=== PATIENT | male | born 1945 | race American Indian/Alaskan Native ===

== ENCOUNTER 2017-02-08 14:25 | Emergency (ER) | payer MEDICARE, OTHER ==
--- NOTE | 2017-02-08 18:22 | XRay Report ---
FINAL REPORT PROCEDURE: XR ANKLE 2V LT TECHNIQUE: Two view left ankle HISTORY: fall//lt ankle pain COMPARISON: No prior studies are available for comparison. FINDINGS: Mild to moderate swelling. Degenerative changes of the ankle. Patchy appearance of the bones of the feet, nonspecific. Suboptimal views with a lateral and a oblique view. IMPRESSION: No definite fracture on limited views
--- NOTE | 2017-02-08 18:24 | XRay Report ---
FINAL REPORT PROCEDURE: XR KNEE 1-2V LT TECHNIQUE: Two views left knee AP lateral HISTORY: Fall//lt knee pain COMPARISON: No prior studies are available for comparison. FINDINGS: Moderate soft tissue swelling. Osteoporosis. Degenerative changes of the knee joint. Motion artifact and soft tissue artifacts exterior to leg obscure the anatomy. I can't exclude a tibial plateau fracture medially. There is chronic calcifications seen about the medial proximal tibial epicondyle. IMPRESSION: Limited evaluation left knee. Can't exclude acute fracture of the medial tibial plateau. Recommend followup three-view with better technique no external artifacts or CT scan evaluation.
--- NOTE | 2017-02-08 18:26 | XRay Report ---
FINAL REPORT PROCEDURE: XR HIP 2-3V LT TECHNIQUE: Two view hip HISTORY: fall//lt hip pain COMPARISON: No prior studies are available for comparison. FINDINGS: Moderate to severe degenerative changes of the hips. Calcifications seen about greater lesser trochanter on the left. Examination is obscured and limited by overlying soft tissue attenuation. Cannot exclude a subtle acute fracture of the left femoral neck. Recommend follow-up with improved technique including AP view pelvis and standard AP coned-down left hip, frogleg left hip oblique left hip and lateral views left hip possible common versus CT scan. IMPRESSION: Cannot exclude subtle acute fracture of the left femoral neck on limited views
[2017-02-08 18:29] LABS: Basophils % (Auto) 0.5 % (0.0-1.8); Hematocrit 45.5 % (35.5-45.6); Hemoglobin 15.1 gm/dl (11.8-15.2); Mean Corpuscular HGB Conc 33 % (32-34); Mean Corpuscular Hemoglobin 30 pg (28-32); Mean Corpuscular Volume 90 fl (84-94); Platelet Count 180 K/mm3 (140-440); Red Blood Count 5.04 M/mm3 (3.65-5.03); Red Cell Distribution Width 14.7 % (13.2-15.2)
[2017-02-08 18:38] LABS: INR 1.78 (0.87-1.13)
[2017-02-08 18:39] LABS: Partial Thromboplastin Time 37.2 Sec. (24.2-36.6)
[2017-02-08 18:57] LABS: Alanine Aminotransferase 50 units/L (7-56); Albumin 4.3 g/dL (3.9-5); Albumin/Globulin Ratio 1.5 %; Alkaline Phosphatase 65 units/L (35-129); Anion Gap 21 mmol/L; BUN/Creatinine Ratio 16; Blood Urea Nitrogen 13 mg/dL (9-20); Calcium 9.1 mg/dL (8.4-10.2); Carbon Dioxide 24 mmol/L (22-30); Chloride 99.5 mmol/L (98-107); Glucose 191 mg/dL (75-100); Potassium 4.7 mmol/L (3.6-5.0); Sodium 140 mmol/L (137-145); Total Protein 7.1 g/dL (6.3-8.2)
[2017-02-08 21:41] VITALS: BP 154/73
--- NOTE | 2017-02-08 23:28 | Emergency Department Report ---
ED Fall HPI - General Chief Complaint: Fall Stated Complaint: LEG PAIN Time Seen by Provider: 02/08/17 23:18 Source: patient, family () Mode of arrival: Ambulatory - History of Present Illness Initial Comments: 71 yo MALE WITH LEFT SIDED CVA AND PARALYSIS C/O FALL YESTERDAY WHILE TRANSFERRING FROM THE BED TO THE WHEEL CHAIR. HE C/O LEFT HIP, KNEE AND ANKLE PAIN. NO LOC MD Complaint: fall -: Sudden, days(s) (1) Fall From: out of bed ( TO WHEELCHAIR) When Fall Occurred: # days [employer]ATION [employer] (1) Fall Witnessed: no Place Fall Occurred: home Loss of Consciousness: none Prolonged Down Time?: no Symptoms Prior to Fall: none Location - Extremities: Left: Knee, Ankle Severity: moderate Severity scale (0 -10): 6 Quality: aching Context: other (TRANSFERRING FROM HIS BED) - Related Data Home Medications Medication Instructions Recorded Confirmed Last Taken Digoxin [Lanoxin] 0.25 mg PO DAILY 11/07/12 11/07/12 11/06/12 0.25 Gabapentin [Neurontin] 1,200 mg PO TID 11/07/12 11/07/12 11/06/12 400 Insulin Aspart Prot/Aspart(Nf) 5 unit SQ TID 11/07/12 11/07/12 11/06/12 [NovoLOG Mix 70/30 VIAL] 5 Insulin Glargine,Hum.rec.anlog 30 unit SQ QHS 11/07/12 11/07/12 11/05/12 [Lantus Solostar] 30 Lisinopril [Zestril TAB] 5 mg PO QDAY 11/07/12 11/07/12 11/06/12 5 Metoprolol [Lopressor TAB] 50 mg PO BID 11/07/12 11/07/12 11/06/12 50mg Multivitamin [Multi-Vitamin Daily] 1 each PO 11/07/12 11/07/12 11/06/12 one tab Simvastatin 10 mg PO QHS 11/07/12 11/07/12 11/05/12 10 Trazodone HCl [traZODone] 200 mg PO QPM 11/07/12 11/07/12 11/05/12 300 Venlafaxine HCl [Venlafaxine ER] 150 mg PO QDAY 11/07/12 11/07/12 11/06/12 150 Warfarin Sodium [Coumadin] 5 mg PO 5XW 11/07/12 11/07/12 11/12/12 5mg Warfarin [Coumadin] 2.5 mg PO 2XW 11/07/12 11/07/12 11/05/12 2.5 Previous Rx's Medication Instructions Recorded Last Taken Type Famotidine [Pepcid] 40 mg PO QHS #30 tablet 11/11/12 Unknown Rx Levofloxacin [Levaquin] 750 mg PO QDAY #10 tablet 11/11/12 Unknown Rx oxyCODONE /ACETAMINOPHEN [Percocet 1 tab PO Q6HR PRN #20 tablet 02/09/17 Unknown Rx 5/325] Allergies Allergy/AdvReac Type Severity Reaction Status Date / Time Iodinated Contrast- Oral and Allergy Hives Verified 02/08/17 14:32 IV Dye ED Review of Systems ROS: Stated complaint: LEG PAIN Other details as noted in HPI Constitutional: denies: chills, fever Eyes: denies: eye pain, eye discharge, vision change ENT: denies: ear pain, throat pain Respiratory: denies: cough, shortness of breath, wheezing Cardiovascular: denies: chest pain, palpitations Endocrine: no symptoms reported Gastrointestinal: denies: abdominal pain, nausea, diarrhea Genitourinary: denies: urgency, dysuria Musculoskeletal: denies: back pain, joint swelling Skin: denies: rash, lesions Neurological: other (PARALYZED ON THE LEFT SIDE). denies: headache, weakness, paresthesias Psychiatric: denies: anxiety, depression Hematological/Lymphatic: denies: easy bleeding, easy bruising ED Past Medical Hx - Past Medical History Previous Medical History?: Yes Hx Hypertension: Yes Hx CVA: Yes Hx Heart Attack/AMI: No Hx Congestive Heart Failure: Yes Hx Diabetes: Yes Hx Deep Vein Thrombosis: Yes Hx Arthritis: Yes Hx Seizures: Yes Additional medical history: PTSD - Surgical History Past Surgical History?: Yes Additional Surgical History: post stroke surgery 2003 - Social History Smoking Status: Never Smoker - Medications Home Medications: Home Medications Medication Instructions Recorded Confirmed Last Taken Type Digoxin [Lanoxin] 0.25 mg PO DAILY 11/07/12 11/07/12 11/06/12 History 0.25 Gabapentin [Neurontin] 1,200 mg PO TID 11/07/12 11/07/12 11/06/12 History 400 Insulin Aspart Prot/Aspart(Nf) 5 unit SQ TID 11/07/12 11/07/12 11/06/12 History [NovoLOG Mix 70/30 VIAL] 5 Insulin Glargine,Hum.rec.anlog 30 unit SQ QHS 11/07/12 11/07/12 11/05/12 History [Lantus Solostar] 30 Lisinopril [Zestril TAB] 5 mg PO QDAY 11/07/12 11/07/12 11/06/12 History 5 Metoprolol [Lopressor TAB] 50 mg PO BID 11/07/12 11/07/12 11/06/12 History 50mg Multivitamin [Multi-Vitamin Daily] 1 each PO 11/07/12 11/07/12 11/06/12 History one tab Simvastatin 10 mg PO QHS 11/07/12 11/07/12 11/05/12 History 10 Trazodone HCl [traZODone] 200 mg PO QPM 11/07/12 11/07/12 11/05/12 History 300 Venlafaxine HCl [Venlafaxine ER] 150 mg PO QDAY 11/07/12 11/07/12 11/06/12 History 150 Warfarin Sodium [Coumadin] 5 mg PO 5XW 11/07/12 11/07/12 11/12/12 History 5mg Warfarin [Coumadin] 2.5 mg PO 2XW 11/07/12 11/07/12 11/05/12 History 2.5 Famotidine [Pepcid] 40 mg PO QHS #30 tablet 11/11/12 Unknown Rx Levofloxacin [Levaquin] 750 mg PO QDAY #10 tablet 11/11/12 Unknown Rx oxyCODONE /ACETAMINOPHEN [Percocet 1 tab PO Q6HR PRN #20 tablet 02/09/17 Unknown Rx 5/325] ED Physical Exam - General Limitations: No Limitations (SITTING IN A WHEELCHAIR WITH MULTIPLE LAYERS OF CLOTHES ON), Physical Limitation General appearance: alert, in no apparent distress - Head Head exam: Present: atraumatic, normocephalic - Eye Eye exam: Present: normal appearance, EOMI - ENT ENT exam: Present: mucous membranes moist - Neck Neck exam: Present: normal inspection - Respiratory Respiratory exam: Present: normal lung sounds bilaterally. Absent: respiratory distress - Cardiovascular Cardiovascular Exam: Present: regular rate, normal rhythm. Absent: systolic murmur, diastolic murmur, rubs, gallop - GI/Abdominal GI/Abdominal exam: Present: soft, normal bowel sounds - Rectal Rectal exam: Present: deferred - Expanded Lower Extremity Exam Left Hip exam: Present: tenderness (IN JOINT) Knee exam: Present: tenderness Ankle exam: Present: tenderness - Back Exam Back exam: Present: normal inspection - Neurological Exam Neurological exam: Present: alert, oriented X3 - Psychiatric Psychiatric exam: Present: normal affect, normal mood - Skin Skin exam: Present: warm, dry, intact, normal color. Absent: rash ED Course Vital Signs 02/08/17 02/08/17 02/08/17 14:32 21:15 21:39 Temperature 98.6 F 98.8 F Pulse Rate 74 78 Respiratory 18 16 16 Rate Blood Pressure 126/57 Blood Pressure 154/73 [Left] O2 Sat by Pulse 97 96 96 Oximetry ED Medical Decision Making - Lab Data Result diagrams: 02/08/17 17:55 02/08/17 17:55 - Radiology Data Radiology results: report reviewed (LEFT KNEE: CANNOT EXCLUDE FRACTURE OF MEDIAL PLATEAU; LEFT HIP:CANNOT EXCLUDE FRACTURE, POOR QUALITY FILMS LEFT ANKLE : NOFRACTURE ; CT EFT LEG: NO FRACTURE, ARTHRITIS) Critical care attestation.: If time is entered above; I have spent that time in minutes in the direct care of this critically ill patient, excluding procedure time. ED Disposition Clinical Impression: Left hip pain, Hyperglycemia, Arthritis Left knee pain Qualifiers: Chronicity: acute Qualified Code(s): M25.562 - Pain in left knee Left ankle pain Qualifiers: Chronicity: acute Qualified Code(s): M25.572 - Pain in left ankle and joints of left foot Disposition: DC-01 TO HOME OR SELFCARE Is pt being admited?: No Does the pt Need Aspirin: No Condition: Stable Instructions: Foot Contusion (ED), Knee Pain (ED), Arthralgia (ED) Additional Instructions: PLEASE FOLLOW UP WITH YOUR DR IN 2 DAYS .RETURN TO ED FOR ANY CONCERNS OR IF SYMPTOMS INCREASE Prescriptions: oxyCODONE /ACETAMINOPHEN [Percocet 5/325] 1 tab PO Q6HR PRN #20 tablet PRN Reason: Pain Referrals: PRIMARY CARE, [Primary Care Provider] - 3-5 Days Time of Disposition: 02:17
--- NOTE | 2017-02-09 01:01 | Cat Scan Report ---
FINAL REPORT EXAM: CT LOWER EXTREMITY LT WO CON HISTORY: painin hip, knee and ankle form fall TECHNIQUE: Routine axial imaging was obtained of the left lower extremity extending from above the hip joint through the ankle without IV contrast with sagittal and coronal reconstructions. noted in the ankle otherwise. FINDINGS: The hip joint reveals mild to moderate arthritic changes. There are heterotopic calcifications ventral to the hip joint. No definite fracture of the femoral head and neck is seen. Joint fluid is not identified. The acetabula appears intact. The knee joint shows no evidence of fracture or joint effusion. In particular, there is no evidence of medial tibial plateau fracture. The ankle reveals arthritic changes in hindfoot. The ankle mortise appears intact. No definite fracture seen. The musculature and soft tissues are unremarkable. IMPRESSION: No evidence acute fracture in the left lower extremity as described. 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
== END 2017-02-09 | disposition home or self-care (01) ==
LOC: ED 14:25
DX: M25.552 Pain in left hip (principal); M25.562 Pain in left knee; E11.65 Type 2 diabetes mellitus with hyperglycemia; M25.572 Pain in left ankle and joints of left foot; I10 Essential (primary) hypertension; Z86.73 Personal history of transient ischemic attack (TIA), and cerebral infarction without residual deficits; I50.9 Heart failure, unspecified; I82.409 Acute embolism and thrombosis of unspecified deep veins of unspecified lower extremity; R56.9 Unspecified convulsions; Z88.8 Allergy status to other drugs, medicaments and biological substances; W06.XXXA Fall from bed, initial encounter; Y93.89 Activity, other specified; Y92.89 Other specified places as the place of occurrence of the external cause; Y99.8 Other external cause status; Z79.4 Long term (current) use of insulin
CPT/HCPCS: 36415; 80053; 82962; 85025; 85610; 85730